=== PATIENT | male | born 1950 | race American Indian/Alaskan Native ===

== ENCOUNTER 2017-08-09 18:38 | Emergency (ER) | payer SELFPAY | END 2017-08-09 18:43 | disposition left against medical advice (07) | LOC: ED 18:38 | DX: R33.9 Retention of urine, unspecified (principal); Z53.21 Procedure and treatment not carried out due to patient leaving prior to being seen by health care provider ==

== ENCOUNTER 2017-08-10 00:50 | Emergency (ER) | payer MEDICARE ==
[2017-08-10 03:46] LABS: Bacteria,Urine 2+ /HPF (Negative); Bilirubin,Urine NEG (Negative); Blood,Urine MOD (Negative); Color,Urine Red (Yellow); Urobilinogen,Urine < 2.0 mg/dL (<2.0)
[2017-08-10 03:47] LABS: RBC,Urine > 182.0 /HPF (0.0-6.0)
--- NOTE | 2017-08-10 04:01 | Emergency Department Report ---
HPI - General Chief Complaint: Urogenital-Male Time Seen by Provider: 08/10/17 03:42 - HPI HPI: Room 7 The patient is a 66-year-old male presenting with a chief complaint of urinary retention. The patient states he was urinating normally until yesterday morning when he awakened at 08:00 when he urinated she noticed she was straining to urinate. The patient states he eventually passed a blood clot and began urinating red blood. Later in the afternoon yesterday the patient noticed he was only passing drops of blood whenever he needed to urinate the patient came to the emergency department today at 18:00 for urinary retention however prior to evaluation he said he went to the bathroom and passed a large blood clot and was able to urinate easily afterwards. The patient states she then went home and was urinating in a normal fashion until this evening when he again had the nurse urinate but was unable to. Patient denies abdominal pain Location: Genitourinary system Duration: Intermittent since yesterday Quality: Retention Severity: Moderate Modifying factors: [see above] Context: [see above] Mode of transportation: Unknown ED Past Medical Hx - Past Medical History Previous Medical History?: Yes Hx Diabetes: Yes Additional medical history: prostate Ca 2005, seed implanted - Surgical History Additional Surgical History: Prostate seed implant - Family History Family history: no significant - Social History Smoking Status: Former Smoker (none 8 years) Substance Use Type: None (denies illicit drug use), Alcohol (occasional) - Medications Home Medications: Home Medications Medication Instructions Recorded Confirmed Last Taken Type Levofloxacin [Levaquin TAB] 500 mg PO QDAY #10 tablet 08/10/17 Unknown Rx ED Review of Systems ROS: Stated complaint: CAN'T PEE Other details as noted in HPI Gastrointestinal: denies: abdominal pain Genitourinary: hematuria, other (urinary retention) Musculoskeletal: denies: back pain Physical Exam - Physical Exam Vital Signs: Vital Signs 08/10/17 01:45 Temperature 98.7 F Pulse Rate 82 Respiratory 18 Rate Blood Pressure 126/73 O2 Sat by Pulse 97 Oximetry Physical Exam: GENERAL: The patient is well-developed well-nourished male sitting in chair not appear to be in acute distress HEENT: Normocephalic. Atraumatic. Extraocular motions are intact. Patient has moist mucous membranes. NECK: Supple. Trachea midline CHEST/LUNGS: Clear to auscultation. There is no respiratory distress noted. HEART/CARDIOVASCULAR: Regular. There is no tachycardia. There is no gallop rub or murmur. ABDOMEN: Abdomen is soft, nontender. Patient has normal bowel sounds. There is no abdominal distention. SKIN: There is no rash. There is no edema. There is no diaphoresis. NEURO: The patient is awake, alert, and oriented. The patient is cooperative. The patient has normal speech MUSCULOSKELETAL: There is no CVA tenderness. There is no evidence of acute injury. ED Course Vital Signs 08/10/17 01:45 Temperature 98.7 F Pulse Rate 82 Respiratory 18 Rate Blood Pressure 126/73 O2 Sat by Pulse 97 Oximetry ED Medical Decision Making - Lab Data Laboratory Tests 08/10/17 03:27 Urine Color Red Urine Turbidity Clear Urine pH 6.0 Ur Specific [place] 1.005 Urine Protein 100 mg/dl Urine Glucose (UA) 50 Urine Ketones Neg Urine Blood Mod Urine Nitrite Neg Urine Bilirubin Neg Urine Urobilinogen < 2.0 Ur Leukocyte Esterase Sm Urine WBC (Auto) 65.0 H Urine RBC (Auto) > 182.0 Urine Bacteria (Auto) 2+ - Radiology Data Radiology results: report reviewed (CT abdomen and pelvis), image reviewed (CT abdomen and pelvis) [facility] [address] [place] [address] Cat Scan Report Signed Patient: CHAPARRITA HUNT MR#: [id number] : 1950 Acct:[id number] Age/Sex: 66 / M ADM Date: 08/10/17 Loc: ED Attending Dr: Ordering Physician: CONSTANCE WASHBURN MD Date of Service: 08/10/17 Procedure(s): CT abdomen pelvis wo con Accession Number(s): [id number] cc: CONSTANCE WASHBURN MD FINAL REPORT EXAM: CT ABDOMEN PELVIS WO CON HISTORY: hematuria, urinary retention TECHNIQUE: Routine axial imaging was obtained of the abdomen and pelvis without oral or IV contrast. Sagittal and coronal reconstructions were reviewed. FINDINGS: The lung bases reveal mild bronchiectatic changes in both lower lobes. There are no infiltrates or effusions. The liver, gallbladder, pancreas, spleen, and adrenal glands appear normal. The kidneys show no evidence of stones or hydronephrosis. There is a 1 cm cortical cyst posteriorly in the right kidney. There calcification of the abdominal aorta. The bowel loops are normal in caliber. The appendix is not enlarged. The bladder is distended. The prostate gland is moderately enlarged indenting the floor bladder. There are numerous radiation implant seeds in the prostatic bed. There is no evidence of free fluid or adenopathy. The skeletal structures reveal multilevel disc degeneration in the lumbar spine. IMPRESSION: Distended bladder with enlarged prostate gland suggesting bladder outlet obstruction. Radiation implant seeds in good position in the prostatic bed. No evidence of renal stones or hydronephrosis. Multilevel disc degeneration in the lumbar spine. Bronchiectatic changes in both lower lobes. No acute infiltrates or effusions Transcribed By: RB Dictated By: MICHELLE FUENTES MD Electronically Authenticated By: MICHELLE FUENTES MD Signed Date/Time: 08/10/17425 DD/ 5 TD/TT: 08/10/17425 - Differential Diagnosis urinary retention, UTI, Critical care attestation.: If time is entered above; I have spent that time in minutes in the direct care of this critically ill patient, excluding procedure time. ED Disposition Clinical Impression: Urinary retention, Hematuria, UTI (urinary tract infection) Disposition: - TO HOME OR SELFCARE Is pt being admited?: No Does the pt Need Aspirin: No Condition: Stable Instructions: Urinary Retention in Men (ED) Additional Instructions: Return to the emergency department immediately should you develop worsening symptoms, fever, inability to tolerate food or liquid or any other concerns. Prescriptions: Levofloxacin [Levaquin TAB] 500 mg PO QDAY #10 tablet Referrals: NOLA CAR MD [Staff Physician] - 3-5 Days Time of Disposition: 04:39
--- NOTE | 2017-08-10 04:32 | Cat Scan Report ---
FINAL REPORT EXAM: CT ABDOMEN PELVIS WO CON HISTORY: hematuria, urinary retention TECHNIQUE: Routine axial imaging was obtained of the abdomen and pelvis without oral or IV contrast. Sagittal and coronal reconstructions were reviewed. FINDINGS: The lung bases reveal mild bronchiectatic changes in both lower lobes. There are no infiltrates or effusions. The liver, gallbladder, pancreas, spleen, and adrenal glands appear normal. The kidneys show no evidence of stones or hydronephrosis. There is a 1 cm cortical cyst posteriorly in the right kidney. There calcification of the abdominal aorta. The bowel loops are normal in caliber. The appendix is not enlarged. The bladder is distended. The prostate gland is moderately enlarged indenting the floor bladder. There are numerous radiation implant seeds in the prostatic bed. There is no evidence of free fluid or adenopathy. The skeletal structures reveal multilevel disc degeneration in the lumbar spine. IMPRESSION: Distended bladder with enlarged prostate gland suggesting bladder outlet obstruction. Radiation implant seeds in good position in the prostatic bed. No evidence of renal stones or hydronephrosis. Multilevel disc degeneration in the lumbar spine. Bronchiectatic changes in both lower lobes. No acute infiltrates or effusions
[2017-08-10] MEDS ORDERED: TORADOL ONE (04:59)
[2017-08-10] MEDS ORDERED: TORADOL IV ONE (05:00)
[2017-08-10 06:00] VITALS: BP 137/73
[2017-08-10] MEDS ORDERED: NACL 0.9% IR ONE (08:00)
== END 2017-08-10 10:00 | disposition home or self-care (01) ==
LOC: ED 00:50
DX: N39.0 Urinary tract infection, site not specified (principal); R33.9 Retention of urine, unspecified; R31.9 Hematuria, unspecified; E11.9 Type 2 diabetes mellitus without complications; Z87.891 Personal history of nicotine dependence
CPT/HCPCS: 51702; 74176; 81001; 96374; 99284; A4217; J1885